=== PATIENT | male | born 1935 | race Two or more races ===

== ENCOUNTER 2020-05-01 12:54 | Inpatient (IN) | payer MEDICARE, BC ==
[~2020-05-01] VITALS: Ht 190.5 cm; Wt 82.6 kg
[2020-05-01 16:40] VITALS: BP 135/71
[2020-05-01] MEDS ORDERED: INSU100V11 (16:53)
[2020-05-01] MEDS ORDERED: ASPI-866 PO (16:53)
[2020-05-01] MEDS ORDERED: EMPA10TA PO (16:53)
[2020-05-01] MEDS ORDERED: INSU3INS10 SQ (16:53)
[2020-05-01] MEDS ORDERED: ATOR40TA PO (16:53)
[2020-05-01] MEDS ORDERED: DEXTROSE 50% 50 ML DISP.SYRIN IV PRN ×2 (17:00→19:45)
--- NOTE | 2020-05-01 17:49 | NUR ---
Received patient around 4pm in stable condition with oxygen via nasal cannula at 2LPM saturation- 96%. not in distress. Patient skin intact. ordered Z-guard for skin care. 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 Patient noted with left mild facial droop. Patient able to move upper arm and lower extremities. Patient left eye smaller than right eye noted. Patient verbalize blurred left eye vision. DNP Ben notified for med recon and admission. not in distress. will continue monitor
[2020-05-01] MEDS ORDERED: INSULIN REGULAR, HUMAN 300 UNIT/3 ML VIAL SQ PRN (19:45)
[2020-05-01 20:00] VITALS: BP 118/71
[2020-05-01] MEDS: ATORVASTATIN 40 MG TABLET PO SCH (20:25)
[2020-05-01] MEDS: BLOOD SUGAR DIAGNOSTIC 1 EACH STRIP VI SCH (20:26)
[2020-05-01] MEDS: INSULIN REGULAR, HUMAN 300 UNIT/3 ML VIAL SQ PRN (20:33)
[2020-05-01] MEDS ORDERED: BLOOD SUGAR DIAGNOSTIC 1 EACH STRIP VI SCH (21:00)
[2020-05-01] MEDS ORDERED: INSULIN ASPART 1000 UNITS/10 ML VIAL(NOVOLOG) SQ SCH (21:00)
--- NOTE | 2020-05-01 21:21 | NUR ---
Received pt resting in bed and watching tv. AAO x2-3. On 2L O2 via NC, no acute distress noted. Denies pain/ discomfort. Due med given as ordered. Accucheck 168, insulin coverage given as ordered. NIHSS done. Left facial drooping, left eye smaller than the right eye, and slurred speech noted. Pt noted to have some weakness, but able to move and lift both upper and lower extremities without difficulty. Safety measures maintained. Bed alarm on. Will continue to monitor.
[2020-05-02 04:00] VITALS: BP 113/67
[2020-05-02] MEDS: BLOOD SUGAR DIAGNOSTIC 1 EACH STRIP VI SCH ×4 (06:35→20:43)
[2020-05-02 07:14] LABS: BASOPHILS % (AUTO) 0.7 % (0.0-2.0); EOSINOPHILS # (AUTO) 0.1 K/uL (0.0-0.7); EOSINOPHILS % (AUTO) 1.9 % (0.0-7.0); HEMATOCRIT 46.9 % (36.7-47.1); HEMOGLOBIN 15.7 g/dL (12.5-16.3); LYMPHOCYTES # (AUTO) 1.7 K/uL (20.0-40.0); LYMPHOCYTES % (AUTO) 25.5 % (20.5-51.5); MEAN CORPUSCULAR HEMOGLOBIN 30.9 uug (23.8-33.4); MEAN CORPUSCULAR HGB CONC 34 g/dL (32.5-36.3); MEAN CORPUSCULAR VOLUME 92.1 fL (73.0-96.2); MONOCYTES # (AUTO) 0.9 K/uL (2.0-10.0); MONOCYTES % (AUTO) 13.9 % (0.0-11.0); NEUTROPHILS # (AUTO) 3.9 K/uL (1.8-8.9); PLATELET COUNT (AUTO) 161 K/uL (152-348); WHITE BLOOD COUNT (AUTO) 6.8 K/uL (3.6-10.2)
[2020-05-02 07:30] VITALS: BP 143/77
[2020-05-02 07:39] LABS: CREATININE 1.1 mg/dL (0.6-1.3); POTASSIUM 3.3 mmol/L (3.5-5.1)
[2020-05-02] MEDS ORDERED: POTASSIUM CHLORIDE 20 MEQ TAB.PRT.SR PO ONE (10:30)
[2020-05-02] MEDS: INSULIN REGULAR, HUMAN 300 UNIT/3 ML VIAL SQ PRN ×3 (12:16→20:44)
[2020-05-02] MEDS: ASPIRIN EC 81 MG TABLET.DR PO SCH (13:21)
--- NOTE | 2020-05-02 14:06 | NUR ---
Social Work Stroke Resources: aquacultural worker supervisor met with patient and provided stroke referrals such as: Stroke Family Warmline at (2-431-2-STROKE) and additional information on caring for a stroke survivor ( ). aquacultural worker supervisor also educated patient on the signs of Stroke and to immediately call 911. aquacultural worker supervisor provided education on the signs of stroke and provided educational packet with information: Dietary food, what stroke is, risks, emotional support, finding support, medical management, and effects of stroke.
--- NOTE | 2020-05-02 14:07 | NUR ---
[facility] PHQ9 Post Stroke Depression Screening: social worker psychiatric met with patient and conducted a PHQ-9 (Post Stroke Depression Screening) in which the patient scored a level of 4 for depression. Patient does not require a psychiatric consult at this time.
[2020-05-02 15:00] VITALS: BP 132/77
[2020-05-02 20:00] VITALS: BP 113/52
[2020-05-02] MEDS: ATORVASTATIN 40 MG TABLET PO SCH (20:42)
[2020-05-02] MEDS ORDERED: INSULIN DEGLUDEC SQ SCH (21:00)
[2020-05-02] MEDS ORDERED: LIRAGLUTIDE SQ SCH (21:00)
[2020-05-03] VITALS: BP 149/74
[2020-05-03 04:00] VITALS: BP 134/72
--- NOTE | 2020-05-03 04:46 | NUR ---
Received patient in bed, AAO x4. No acute distress or SOB was noted. On 2 L O2 via NC. Left facial droop and slurred speech was noted. Able to make needs known. No Complain of pain. All due medications administered and well tolerated. Accucheck @ 2100 done, BS:159, covered by 2 units insulin based on insulin sliding scale. Safety measures maintained. Fall prevention maintained. All needs attended promptly. Bed in locked and low position, Side rails up x2 for safety. Call light and frequently using items within reach. Continue to monitor and will endorse to the oncoming nurse.
[2020-05-03] MEDS: BLOOD SUGAR DIAGNOSTIC 1 EACH STRIP VI SCH ×4 (06:43→20:47)
[2020-05-03 07:30] VITALS: BP 115/67
[2020-05-03] MEDS ORDERED: JARDIANCE 10 MG TAB PO SCH (09:00)
[2020-05-03] MEDS: INSULIN REGULAR, HUMAN 300 UNIT/3 ML VIAL SQ PRN ×2 (11:53→20:50)
[2020-05-03] MEDS: ASPIRIN EC 81 MG TABLET.DR PO SCH (12:20)
[2020-05-03 15:40] VITALS: BP 146/64
--- NOTE | 2020-05-03 15:55 | NUR ---
INTERDISCIPLINARY TEAM CONFERENCE
[2020-05-03 20:00] VITALS: BP 136/68
[2020-05-03] MEDS: ATORVASTATIN 40 MG TABLET PO SCH (20:38)
[2020-05-04 04:55] VITALS: BP 136/69
--- NOTE | 2020-05-04 05:53 | NUR ---
Shift End Report: Slept well. No significant event reported all night, All needs attended and met. Continue current rehab plan of care.
[2020-05-04] MEDS: BLOOD SUGAR DIAGNOSTIC 1 EACH STRIP VI SCH ×4 (06:23→20:23)
[2020-05-04 08:00] VITALS: BP 157/76
[2020-05-04] MEDS: INSULIN REGULAR, HUMAN 300 UNIT/3 ML VIAL SQ PRN ×4 (08:32→20:24)
[2020-05-04] MEDS: ASPIRIN EC 81 MG TABLET.DR PO SCH (08:55)
[2020-05-04] MEDS: predniSONE 20 MG TABLET PO SCH (11:36)
[2020-05-04] MEDS: VALACYCLOVIR HCL 500 MG TABLET PO SCH ×2 (13:48→21:11)
[2020-05-04 16:01] VITALS: BP 145/73
--- NOTE | 2020-05-04 16:03 | NUR ---
INDIVIDUALIZED PLAN OF CARE
--- NOTE | 2020-05-04 18:39 | NUR ---
no changes noted during shift, kept patient comfortable and clean.
[2020-05-04 20:22] VITALS: BP 135/86
[2020-05-04] MEDS: ATORVASTATIN 40 MG TABLET PO SCH (20:31)
[2020-05-05 04:37] VITALS: BP 137/70
[2020-05-05] MEDS: VALACYCLOVIR HCL 500 MG TABLET PO SCH ×3 (06:01→21:06)
[2020-05-05] MEDS: BLOOD SUGAR DIAGNOSTIC 1 EACH STRIP VI SCH ×4 (06:47→20:40)
[2020-05-05] MEDS: INSULIN REGULAR, HUMAN 300 UNIT/3 ML VIAL SQ PRN ×4 (07:32→20:45)
[2020-05-05] MEDS: ASPIRIN EC 81 MG TABLET.DR PO SCH (07:53)
[2020-05-05] MEDS: predniSONE 20 MG TABLET PO SCH (07:53)
[2020-05-05 08:00] VITALS: BP 167/84
[2020-05-05 15:52] VITALS: BP 125/65
[2020-05-05 20:01] VITALS: BP 126/72
[2020-05-05] MEDS: ATORVASTATIN 40 MG TABLET PO SCH (20:40)
--- NOTE | 2020-05-05 21:26 | NUR ---
Received pt resting in bed and watching tv. AAO x3-4, forgetful at times. On 1L O2 via NC, no acute distress noted. Denies pain/ discomfort. Due meds given as ordered, given crushed, tolerated well. Accucheck 245, insulin coverage given per sliding scale. Safety measures maintained. Call light and personal items within reach. Will continue to monitor.
[2020-05-06 04:47] VITALS: BP 154/76
[2020-05-06] MEDS: VALACYCLOVIR HCL 500 MG TABLET PO SCH ×3 (05:48→22:51)
[2020-05-06] MEDS: BLOOD SUGAR DIAGNOSTIC 1 EACH STRIP VI SCH ×4 (06:31→21:06)
[2020-05-06 07:30] VITALS: BP 148/74
[2020-05-06] MEDS: INSULIN REGULAR, HUMAN 300 UNIT/3 ML VIAL SQ PRN ×4 (07:42→21:11)
[2020-05-06] MEDS: ASPIRIN EC 81 MG TABLET.DR PO SCH (08:01)
[2020-05-06] MEDS: predniSONE 20 MG TABLET PO SCH (08:01)
[2020-05-06 16:00] VITALS: BP 142/66
[2020-05-06 20:00] VITALS: BP 148/73
--- NOTE | 2020-05-06 21:00 | NUR ---
Received patient in bed, AAO x3-4. No acute distress or SOB was noted. On RA saturating @95%2. Left facial droop and slurred speech noted. Denies ny pain or discomfort at this time. All due medications administered and well tolerated, crushed and given with apple sauce. Accucheck BS:224, covered by 4 units insulin based on insulin sliding scale. Able to make needs known. all needs attended to promptly, kept comfortable. Safety measures maintained. Fall prevention maintained. All needs attended promptly. Bed in locked and low position, Side rails up x2 for safety. Call light and frequently using items within reach. Continue to monitor.
[2020-05-06] MEDS: ATORVASTATIN 40 MG TABLET PO SCH (21:05)
--- NOTE | 2020-05-06 22:00 | NUR ---
Patient face timed before bed.
[2020-05-07 04:00] VITALS: BP 147/97
[2020-05-07] MEDS: VALACYCLOVIR HCL 500 MG TABLET PO SCH ×3 (06:34→21:14)
[2020-05-07] MEDS: BLOOD SUGAR DIAGNOSTIC 1 EACH STRIP VI SCH ×4 (06:45→21:14)
--- NOTE | 2020-05-07 06:48 | NUR ---
patient slept well through the nights. no complaints, denies any discomfort. No changes throughout the shift. All needs attended and met. Continue current rehab plan of care. Kept patient comfortable and clean. Will endorse report to oncoming nurse accordingly.
[2020-05-07 08:02] VITALS: BP 127/73
[2020-05-07] MEDS: INSULIN REGULAR, HUMAN 300 UNIT/3 ML VIAL SQ PRN ×4 (08:03→21:16)
[2020-05-07] MEDS: ASPIRIN EC 81 MG TABLET.DR PO SCH (08:22)
[2020-05-07] MEDS: predniSONE 20 MG TABLET PO SCH (08:22)
--- NOTE | 2020-05-07 10:00 | NUR ---
Received patient in room, Patient is AAO x 3-4. No acute distress noted. Vital signs stable for patient. No complains of pain at this time. Due morning medications administered as ordered crushed with apple sauce as scheduled, tolerated well. Patient still noted with left side of the face drooping and with slurred speech but able to express needs. Patient on Accu checks. On PT/OT therapy. Safety measures in place. Needs attended, call light left at bed side and will continue with care.
[2020-05-07 15:49] VITALS: BP 127/67
--- NOTE | 2020-05-07 18:13 | NUR ---
All evening medications administered, patient with Accu check of 302 covered with 8units of insulin per sliding scale. Safety measures in place, VS stable. NO complains of discomfort or pain. Needs attended and will continue with care.
[2020-05-07] MEDS: ATORVASTATIN 40 MG TABLET PO SCH (21:14)
[2020-05-07 21:26] VITALS: BP 144/62
--- NOTE | 2020-05-07 22:00 | NUR ---
Received patient in bed, AAO x3-4. No acute distress or SOB was noted. On RA saturating @90%put pt on 2L NC saturating @95%. Left facial droop and slurred speech noted. Denies any pain or discomfort at this time. All due medications administered and well tolerated, crushed and given with apple sauce. Accucheck BS:220, covered by 4 units insulin based on insulin sliding scale. Able to make needs known. Safety measures maintained. Fall prevention maintained. All needs attended promptly. Bed in locked and low position, Side rails up x2 for safety. Call light and frequently using items within reach. Continue to monitor.
[2020-05-08 04:50] VITALS: BP 158/93
[2020-05-08] MEDS: VALACYCLOVIR HCL 500 MG TABLET PO SCH ×3 (05:55→21:07)
[2020-05-08] MEDS: BLOOD SUGAR DIAGNOSTIC 1 EACH STRIP VI SCH ×4 (06:17→20:50)
--- NOTE | 2020-05-08 06:26 | NUR ---
patient slept well through the nights. no complaints, denies any discomfort. No changes throughout the shift. Pt is a little forgetful needs reorientation. On 2L NC saturating @99%. Blood sugar 185 this morning. All needs attended and met. Continue current rehab plan of care. Kept patient comfortable and clean. Will endorse report to oncoming nurse accordingly.
[2020-05-08 06:57] VITALS: BP 139/84
[2020-05-08] MEDS ORDERED: INSU3INS6 SQ (07:51)
[2020-05-08] MEDS ORDERED: LINA5TAB PO (07:51)
[2020-05-08 08:00] VITALS: BP 123/63
[2020-05-08] MEDS: INSULIN REGULAR, HUMAN 300 UNIT/3 ML VIAL SQ PRN ×4 (08:11→20:53)
[2020-05-08] MEDS: predniSONE 20 MG TABLET PO SCH (08:25)
[2020-05-08] MEDS: LOSARTAN POTASSIUM 25 MG TABLET PO SCH (08:26)
[2020-05-08] MEDS: ASPIRIN EC 81 MG TABLET.DR PO SCH (08:26)
[2020-05-08] MEDS ORDERED: LOSARTAN POTASSIUM 25 MG TABLET PO SCH (09:00)
--- NOTE | 2020-05-08 10:20 | NUR ---
Patient is AAO x 3-4. No acute distress noted. ON O2 NC at 1LPM. patient is able to express self still with slurred speech noted. Vital signs stable. Patient noted with elevated BS; informed MD, medications reviewed and started on scheduled Lantus. Patient also started one Losartan 25mg po daily. All due morning meds administered and tolerated. patient on continuos PT/OT therapy as scheduled. Patient is BRP and one person assist for care. Safety measures in place. Needs attended and will continue with care.
[2020-05-08] MEDS: INSULIN GLARGINE,HUM 300 UNITS/3 ML CARTRIDGE SQ SCH (14:01)
[2020-05-08 15:47] VITALS: BP 135/66
--- NOTE | 2020-05-08 18:38 | NUR ---
Patient in stable condition, NO acute distress noted. Accu checks done and insulin per sliding scale administered. VS stable for patient. No complains of pain throughout shift. Monitored closely for safety. Needs attended, safety measures in place and will continue with care.
[2020-05-08 20:05] VITALS: BP 123/61
[2020-05-08] MEDS: ATORVASTATIN 40 MG TABLET PO SCH (20:50)
--- NOTE | 2020-05-08 21:45 | NUR ---
RECEIVED PATIENT IN BED, ALERT AND VERBALLY RESPONSIVE. NO COMPLAINTS OF PAIN. RECEIVED ALL DUE MEDICATIONS. TOLERATED WELL. FALL, SAFETY, AND ASPIRATION PRECAUTIONS OBSERVED. WILL CONTINUE TO MONITOR PATIENT.
[2020-05-09 04:46] VITALS: BP 140/79
[2020-05-09] MEDS: VALACYCLOVIR HCL 500 MG TABLET PO SCH ×3 (05:48→21:00)
--- NOTE | 2020-05-09 06:22 | NUR ---
NO CHANGES OCCURRED DURING THE NIGHT. ALL NEEDS ATTENDED. FALL, SAFETY, AND ASPIRATION PRECAUTIONS OBSERVED.
[2020-05-09] MEDS: BLOOD SUGAR DIAGNOSTIC 1 EACH STRIP VI SCH ×4 (06:35→20:58)
[2020-05-09] MEDS ORDERED: DOCUSATE SODIUM 100 MG CAPSULE PO PRN (07:15)
--- NOTE | 2020-05-09 07:50 | NUR ---
Received patient in bed awake, alert oriented x3 with slurred speech, not in any form of distress on oxygen at 1LPM via nasal cannula. He denies any pain or discomfort at this time. Noted facial asymmetry with droop on left eye and left side of lip. Call light and frequently used items placed within patient's reach.
[2020-05-09 08:00] VITALS: BP 137/80
[2020-05-09] MEDS: predniSONE 20 MG TABLET PO SCH (08:53)
[2020-05-09] MEDS: LINAGLIPTIN 5 MG TABLET PO SCH (08:53)
[2020-05-09] MEDS: ASPIRIN EC 81 MG TABLET.DR PO SCH (08:53)
[2020-05-09] MEDS: LOSARTAN POTASSIUM 25 MG TABLET PO SCH (08:53)
[2020-05-09] MEDS: INSULIN GLARGINE,HUM 300 UNITS/3 ML CARTRIDGE SQ SCH (08:57)
[2020-05-09] MEDS: INSULIN REGULAR, HUMAN 300 UNIT/3 ML VIAL SQ PRN ×4 (08:57→21:00)
[2020-05-09 15:12] VITALS: BP 108/46
[2020-05-09] MEDS: DOCUSATE SODIUM 100 MG/10 ML LIQUID UDC PO PRN (16:20)
--- NOTE | 2020-05-09 16:55 | NUR ---
Patient remains alert, oriented x 3-4, not in any form of distress, on room air tolerating well. No complain of any pain or discomfort. Patient is compliant with medications and tolerated well. Needs attended to promptly and met. Patient participated with PT, OT and ST and tolerated well. Safety measures maintained. Call light and frequently used items placed within patient's reach. Will continue to monitor.
[2020-05-09] MEDS: POLYVINYL ALCOHOL OPHT DROPS 15 ML BOTTLE LEFTEYE PRN (20:57)
[2020-05-09] MEDS: ATORVASTATIN 40 MG TABLET PO SCH (20:58)
[2020-05-09 21:00] VITALS: BP 108/71
--- NOTE | 2020-05-09 22:25 | NUR ---
Received pt resting in bed. AAO x3-4. On 1L O2 via NC, no acute distress noted. Pt was on room air but desat to 88%. Due meds given as ordered, crushed with apple sauce, tolerated well. Eye drop also given on left eye. Safety measures maintained. Call light and personal items within reach. Will continue to monitor.
[2020-05-10 05:32] VITALS: BP 130/64
[2020-05-10] MEDS: VALACYCLOVIR HCL 500 MG TABLET PO SCH ×3 (06:03→21:05)
[2020-05-10] MEDS: DOCUSATE SODIUM 100 MG/10 ML LIQUID UDC PO PRN ×2 (06:04→15:22)
[2020-05-10] MEDS: BLOOD SUGAR DIAGNOSTIC 1 EACH STRIP VI SCH ×4 (06:45→21:01)
[2020-05-10 07:30] VITALS: BP 92/55
[2020-05-10] MEDS: predniSONE 20 MG TABLET PO SCH (08:16)
[2020-05-10] MEDS: POLYVINYL ALCOHOL OPHT DROPS 15 ML BOTTLE LEFTEYE PRN ×2 (08:17→21:12)
[2020-05-10] MEDS: LINAGLIPTIN 5 MG TABLET PO SCH (08:17)
[2020-05-10] MEDS: LOSARTAN POTASSIUM 25 MG TABLET PO SCH (08:23)
[2020-05-10] MEDS: INSULIN GLARGINE,HUM 300 UNITS/3 ML CARTRIDGE SQ SCH (08:29)
[2020-05-10] MEDS: ASPIRIN 81 MG TAB.CHEW PO SCH (08:33)
[2020-05-10] MEDS: INSULIN REGULAR, HUMAN 300 UNIT/3 ML VIAL SQ PRN ×3 (12:12→21:10)
--- NOTE | 2020-05-10 13:14 | NUR ---
INTERDISCIPLINARY TEAM CONFERENCE
[2020-05-10 15:46] VITALS: BP 141/69
[2020-05-10 21:03] VITALS: BP 140/75
[2020-05-10] MEDS: ATORVASTATIN 40 MG TABLET PO SCH (21:04)
--- NOTE | 2020-05-10 21:40 | NUR ---
Received pt resting in bed. AAO x3-4. On 1L O2 via NC, no acute distress noted. Due meds given as ordered, crushed with apple sauce, tolerated well. On nectar- thickened liquid. Eye drop also given on left eye. Safety measures maintained. Call light and personal items within reach. Will continue to monitor.
[2020-05-11 05:05] VITALS: BP 140/71
[2020-05-11] MEDS: DOCUSATE SODIUM 100 MG/10 ML LIQUID UDC PO PRN ×2 (05:53→20:50)
[2020-05-11] MEDS: VALACYCLOVIR HCL 500 MG TABLET PO SCH (06:13)
[2020-05-11] MEDS: POLYVINYL ALCOHOL OPHT DROPS 15 ML BOTTLE LEFTEYE PRN (06:13)
--- NOTE | 2020-05-11 06:39 | NUR ---
Blood sugar dropped to 66 this morning. Pt did not present any s/s of hypoglycemia. 1 cup of orange juice given. Rechecked after 20 mins. Blood sugar is now 88. Will endorse accordingly.
[2020-05-11] MEDS: BLOOD SUGAR DIAGNOSTIC 1 EACH STRIP VI SCH ×4 (06:42→20:45)
[2020-05-11 06:45] LABS: BASOPHILS % (AUTO) 0.2 % (0.0-2.0); EOSINOPHILS # (AUTO) 0.1 K/uL (0.0-0.7); EOSINOPHILS % (AUTO) 0.5 % (0.0-7.0); HEMATOCRIT 47.5 % (36.7-47.1); HEMOGLOBIN 15.7 g/dL (12.5-16.3); LYMPHOCYTES # (AUTO) 2.4 K/uL (20.0-40.0); LYMPHOCYTES % (AUTO) 20.6 % (20.5-51.5); MEAN CORPUSCULAR HEMOGLOBIN 30.7 uug (23.8-33.4); MEAN CORPUSCULAR HGB CONC 33 g/dL (32.5-36.3); MEAN CORPUSCULAR VOLUME 93.1 fL (73.0-96.2); MONOCYTES # (AUTO) 1.1 K/uL (2.0-10.0); MONOCYTES % (AUTO) 9.2 % (0.0-11.0); NEUTROPHILS % (AUTO) 69.5 % (38.5-71.5); PLATELET COUNT (AUTO) 164 K/uL (152-348); WHITE BLOOD COUNT (AUTO) 11.5 K/uL (3.6-10.2)
[2020-05-11 06:57] LABS: POTASSIUM 3.5 mmol/L (3.5-5.1)
[2020-05-11 08:00] VITALS: BP 145/67
[2020-05-11] MEDS: predniSONE 20 MG TABLET PO SCH (08:41)
[2020-05-11] MEDS: LINAGLIPTIN 5 MG TABLET PO SCH (08:51)
[2020-05-11] MEDS: LOSARTAN POTASSIUM 25 MG TABLET PO SCH (08:51)
[2020-05-11] MEDS: ASPIRIN 81 MG TAB.CHEW PO SCH (08:51)
[2020-05-11] MEDS: INSULIN GLARGINE,HUM 300 UNITS/3 ML CARTRIDGE SQ SCH (10:31)
[2020-05-11] MEDS: INSULIN REGULAR, HUMAN 300 UNIT/3 ML VIAL SQ PRN ×3 (12:03→20:46)
[2020-05-11 15:10] VITALS: BP 111/59
[2020-05-11] MEDS: MAGNESIUM HYDROXIDE 30 ML LIQUID UDC PO PRN (18:40)
--- NOTE | 2020-05-11 18:41 | NUR ---
Received patient in room, Patient is AAO x 3-4. No acute distress noted. ON O2 NC at 1LPMPRN. All due morning meds administered and tolerated. Patient changed to nectar thick liquids. Patient on continuos PT/OT therapy as scheduled. Skin kept clean and dry. Safety measures in place. Needs attended and will continue with care.
[2020-05-11 20:00] VITALS: BP 127/54
[2020-05-11] MEDS: ATORVASTATIN 40 MG TABLET PO SCH (20:45)
--- NOTE | 2020-05-11 21:59 | NUR ---
RECD PT IN BED, ALERT ,ORIENTED, NO COMPLAINTS OF PAIN PRESENTED, VITAL SIGNS TAKEN AND RECORDED.LET FACIAL DROOP STILL EVIDENT.ABLE TO USE WALKER TO GO TO BR. DUE MEDS GIVEN,NO SGNS AND SYMPTOMS OF DIABETIC CRISES.KEPT WARM AND COMFORTABLE.
--- NOTE | 2020-05-12 02:11 | NUR ---
APPEARS SLEEPING SOUNDLY IN BED. NO ACUTE DISTRESS NOTED.
[2020-05-12 04:00] VITALS: BP 109/61
[2020-05-12 05:32] VITALS: BP 109/61
[2020-05-12] MEDS: BLOOD SUGAR DIAGNOSTIC 1 EACH STRIP VI SCH ×4 (06:35→20:32)
--- NOTE | 2020-05-12 06:35 | NUR ---
bs done 69, asymptomatic of any diabetic crises,orange juice given, will monitor pt.
[2020-05-12 08:00] VITALS: BP 109/54
[2020-05-12] MEDS: LINAGLIPTIN 5 MG TABLET PO SCH (08:53)
[2020-05-12] MEDS: ASPIRIN 81 MG TAB.CHEW PO SCH (08:53)
[2020-05-12] MEDS: predniSONE 20 MG TABLET PO SCH (08:53)
[2020-05-12] MEDS: LOSARTAN POTASSIUM 25 MG TABLET PO SCH (08:54)
[2020-05-12] MEDS: INSULIN GLARGINE,HUM 300 UNITS/3 ML CARTRIDGE SQ SCH (09:00)
[2020-05-12 11:07] VITALS: BP 118/60
[2020-05-12] MEDS: INSULIN REGULAR, HUMAN 300 UNIT/3 ML VIAL SQ PRN ×3 (11:20→20:36)
[2020-05-12 16:06] VITALS: BP 95/59
--- NOTE | 2020-05-12 18:35 | NUR ---
NO CHANGES NOTED DURING SHIFT, NO ACUTE DISTRESS NOTED
[2020-05-12 20:03] VITALS: BP 120/59
[2020-05-12] MEDS: ATORVASTATIN 40 MG TABLET PO SCH (20:38)
[2020-05-13 05:44] VITALS: BP 118/54
[2020-05-13] MEDS: BLOOD SUGAR DIAGNOSTIC 1 EACH STRIP VI SCH ×4 (06:23→20:16)
[2020-05-13 06:45] LABS: BASOPHILS % (AUTO) 0.2 % (0.0-2.0); EOSINOPHILS % (AUTO) 0.3 % (0.0-7.0); HEMATOCRIT 46.3 % (36.7-47.1); HEMOGLOBIN 15.4 g/dL (12.5-16.3); LYMPHOCYTES # (AUTO) 1.9 K/uL (20.0-40.0); LYMPHOCYTES % (AUTO) 15.8 % (20.5-51.5); MEAN CORPUSCULAR HEMOGLOBIN 30.8 uug (23.8-33.4); MEAN CORPUSCULAR HGB CONC 33 g/dL (32.5-36.3); MEAN CORPUSCULAR VOLUME 92.7 fL (73.0-96.2); MONOCYTES # (AUTO) 1.2 K/uL (2.0-10.0); MONOCYTES % (AUTO) 10.4 % (0.0-11.0); NEUTROPHILS # (AUTO) 8.6 K/uL (1.8-8.9); NEUTROPHILS % (AUTO) 73.3 % (38.5-71.5); PLATELET COUNT (AUTO) 157 K/uL (152-348); WHITE BLOOD COUNT (AUTO) 11.8 K/uL (3.6-10.2)
[2020-05-13 08:00] VITALS: BP 111/78
[2020-05-13] MEDS: predniSONE 20 MG TABLET PO SCH (08:11)
[2020-05-13] MEDS: ASPIRIN 81 MG TAB.CHEW PO SCH (08:11)
[2020-05-13] MEDS: LINAGLIPTIN 5 MG TABLET PO SCH (08:11)
[2020-05-13] MEDS: POLYVINYL ALCOHOL OPHT DROPS 15 ML BOTTLE LEFTEYE PRN ×2 (08:16→20:23)
[2020-05-13] MEDS: LOSARTAN POTASSIUM 25 MG TABLET PO SCH (08:16)
[2020-05-13] MEDS: INSULIN GLARGINE,HUM 300 UNITS/3 ML CARTRIDGE SQ SCH (08:17)
[2020-05-13] MEDS: INSULIN REGULAR, HUMAN 300 UNIT/3 ML VIAL SQ PRN ×3 (11:59→20:23)
[2020-05-13 16:00] VITALS: BP 142/79
--- NOTE | 2020-05-13 17:48 | NUR ---
Patient remains alert, oriented x3-4, not in any form of distress, on room air. He denies any pain or discomfort. Patient participated with PT/OT and ST and tolerated well. He is compliant with medications. Needs attended to promptly. Call light and frequently used items placed within patient's reach.
[2020-05-13 20:00] VITALS: BP 132/67
[2020-05-13] MEDS: ATORVASTATIN 40 MG TABLET PO SCH (20:16)
--- NOTE | 2020-05-13 20:51 | NUR ---
Received pt resting in bed. AAO x3. No acute distress noted. Denies pain/ discomfort. Due med given as ordered, given crushed with apple sauce, tolerated well. On nectar- thick liquid. Accucheck 194, insulin coverage given as per sliding scale. Safety measures maintained. Call light and personal items within reach. Will continue to monitor.
[2020-05-14 04:00] VITALS: BP 119/63
--- NOTE | 2020-05-14 06:18 | NUR ---
Pt's blood sugar this morning is 58 despite having snacks last night. Cup of orange juice given. Will recheck again.
[2020-05-14] MEDS: BLOOD SUGAR DIAGNOSTIC 1 EACH STRIP VI SCH ×4 (06:41→20:26)
--- NOTE | 2020-05-14 06:41 | NUR ---
Pt's blood sugar went up to 75. No s/s of hypoglycemia. Continue to monitor. Will endorse accordingly.
[2020-05-14 07:30] VITALS: BP 128/64
[2020-05-14] MEDS: predniSONE 20 MG TABLET PO SCH (08:40)
[2020-05-14] MEDS: ASPIRIN 81 MG TAB.CHEW PO SCH (08:41)
[2020-05-14] MEDS: LINAGLIPTIN 5 MG TABLET PO SCH (08:41)
[2020-05-14] MEDS: LOSARTAN POTASSIUM 25 MG TABLET PO SCH (08:41)
[2020-05-14] MEDS: INSULIN GLARGINE,HUM 300 UNITS/3 ML CARTRIDGE SQ SCH (09:00)
--- NOTE | 2020-05-14 10:03 | NUR ---
Informed Dr. Jeffers regarding episode of hypoglycemia this morning and asymptomatic as endorsed by manufacturing shift supervisor nurse. Repeat BS check done 105. ordered to hold dose of Lantus due this morning. Will continue to monitor.
[2020-05-14] MEDS: INSULIN REGULAR, HUMAN 300 UNIT/3 ML VIAL SQ PRN ×3 (11:54→20:28)
[2020-05-14 17:00] VITALS: BP 66/18
[2020-05-14 17:05] VITALS: BP 110/67
--- NOTE | 2020-05-14 17:34 | NUR ---
Patient noted with BP of 66/18, HR 54, patient states he feels weak; elevated legs and rechecked BP 110/67, HR 62, patient stated feeling better after intervention. Patient remains alert and oriented x 3-4. No complaint of any discomfort at this time. Notified Dr Jeffers and ordered to continue monitor BP
--- NOTE | 2020-05-14 19:30 | NUR ---
Awake during initial rounds, watching TV. No s/s of respiratory distress. HOB elevated. Denies any pain/discomforts at this time. Safety measures and fall prevention maintained. Continue care as planned.
[2020-05-14 20:00] VITALS: BP 115/75
[2020-05-14] MEDS: ATORVASTATIN 40 MG TABLET PO SCH (20:22)
[2020-05-15 04:00] VITALS: BP 118/62
[2020-05-15] MEDS: BLOOD SUGAR DIAGNOSTIC 1 EACH STRIP VI SCH ×4 (06:15→20:11)
--- NOTE | 2020-05-15 06:16 | NUR ---
Shift End Report: VS stable. No s/s of hypo/hyperglycemia. No seizure activity reported. No complaint of pain/discomforts presented. All needs attended and met. No significant event reported. Continue current rehab plan of care.
[2020-05-15 08:00] VITALS: BP 125/57
[2020-05-15] MEDS: LINAGLIPTIN 5 MG TABLET PO SCH (08:07)
[2020-05-15] MEDS: ASPIRIN 81 MG TAB.CHEW PO SCH (08:07)
[2020-05-15] MEDS: predniSONE 20 MG TABLET PO SCH (08:07)
[2020-05-15] MEDS: LOSARTAN POTASSIUM 25 MG TABLET PO SCH (08:08)
[2020-05-15] MEDS: INSULIN GLARGINE,HUM 300 UNITS/3 ML CARTRIDGE SQ SCH (08:12)
[2020-05-15] MEDS: INSULIN REGULAR, HUMAN 300 UNIT/3 ML VIAL SQ PRN ×3 (11:34→20:12)
--- NOTE | 2020-05-15 13:50 | NUR ---
patient is alert, awake, oriented x3, no acute distress noted, ambulates with FWW with PT, participates in OT services, tolerates well, teaching provided about signs and symptoms of hypo/hyperglycemia and management of it, patient verbalized somewhat understanding of it, reinforcement required, however no signs and symptoms of hypoglycemia or hyperglycemia noted, still noted with facial droop. thinkened liquids, no sign and symptoms of aspiration noted, such as no cough while eating or drinking. continue to with same plan of care, no new skin issues noted, independent with position change while in bed.
[2020-05-15 15:55] VITALS: BP 152/66
[2020-05-15] MEDS: MAGNESIUM HYDROXIDE 30 ML LIQUID UDC PO PRN (16:34)
--- NOTE | 2020-05-15 19:30 | NUR ---
Awake during initial rounds, watching TV. No s/s of respiratory distress. HOB elevated. Vitals WNL. Denies any pain/discomforts at this time. Safety measures and fall prevention maintained. Continue care as planned.
[2020-05-15] MEDS: ATORVASTATIN 40 MG TABLET PO SCH (20:07)
[2020-05-15 20:25] VITALS: BP 115/62
--- NOTE | 2020-05-15 22:00 | NUR ---
Left facial droop and slurred speech noted. Denies any pain or discomfort at this time. All due medications administered and well tolerated, crushed and given with apple sauce. Accucheck BS:205, covered by 4 units insulin based on insulin sliding scale. Able to make needs known. Safety measures maintained. Fall prevention maintained. All needs attended promptly. Bed in locked and low position, Side rails up x2 for safety. Call light and frequently using items within reach. Continue to monitor.
[2020-05-16 05:01] VITALS: BP 173/93
[2020-05-16 05:30] VITALS: BP 163/82
[2020-05-16] MEDS: LOSARTAN POTASSIUM 25 MG TABLET PO SCH ×2 (05:45→09:00)
--- NOTE | 2020-05-16 05:48 | NUR ---
no s/s of distress. denies any pain at the time. Blood pressure 163/82 administered non-scheduled losartan. Will continue to monitor.
[2020-05-16] MEDS: DOCUSATE SODIUM 100 MG/10 ML LIQUID UDC PO PRN (06:08)
[2020-05-16] MEDS: BLOOD SUGAR DIAGNOSTIC 1 EACH STRIP VI SCH ×2 (06:31→11:48)
[2020-05-16 06:33] VITALS: BP 151/68
[2020-05-16 06:40] LABS: BASOPHILS % (AUTO) 0.2 % (0.0-2.0); EOSINOPHILS % (AUTO) 0.3 % (0.0-7.0); HEMATOCRIT 50.7 % (36.7-47.1); HEMOGLOBIN 17.1 g/dL (12.5-16.3); LYMPHOCYTES # (AUTO) 2.1 K/uL (20.0-40.0); LYMPHOCYTES % (AUTO) 15.6 % (20.5-51.5); MEAN CORPUSCULAR HEMOGLOBIN 31.1 uug (23.8-33.4); MEAN CORPUSCULAR HGB CONC 34 g/dL (32.5-36.3); MONOCYTES # (AUTO) 1.3 K/uL (2.0-10.0); MONOCYTES % (AUTO) 9.5 % (0.0-11.0); NEUTROPHILS # (AUTO) 9.9 K/uL (1.8-8.9); NEUTROPHILS % (AUTO) 74.4 % (38.5-71.5); PLATELET COUNT (AUTO) 155 K/uL (152-348); RED BLOOD CELL COUNT(AUTO) 5.51 MIL/uL (4.06-5.63); WHITE BLOOD COUNT (AUTO) 13.3 K/uL (3.6-10.2)
[2020-05-16 06:59] LABS: BILIRUBIN,TOTAL 0.8 mg/dL (0.2-1.0); CREATININE 1.2 mg/dL (0.6-1.3); MAGNESIUM 2.4 mg/dL (1.8-2.4); PHOSPHOROUS 3.5 mg/dL (2.5-4.9); POTASSIUM 4.4 mmol/L (3.5-5.1); TOTAL PROTEIN, SERUM 5.7 g/dL (6.4-8.2)
[2020-05-16 07:01] LABS: THYROID STIMULATING HORMONE 1.825 mIU/mL (0.358-3.740)
[2020-05-16 07:31] VITALS: BP 124/67
[2020-05-16] MEDS: LINAGLIPTIN 5 MG TABLET PO SCH (09:41)
[2020-05-16] MEDS: ASPIRIN 81 MG TAB.CHEW PO SCH (09:41)
[2020-05-16] MEDS ORDERED: INSULIN GLARGINE,HUM 300 UNITS/3 ML CARTRIDGE SQ SCH (10:00)
--- NOTE | 2020-05-16 10:18 | NUR ---
Blood sugar checked before breakfast prior due Lantus and showed 79, patient remains alert, oriented x 3, not in any form of distress. He denies any pain or discomfort. Repeat blood sugar check done after breakfast 120. Dr. Jeffers in the unit, informed MD of trend of his blood sugar and MD ordered to decrease Lantus to 40 units subQ daily. Due medications administered except Losartan since it was administered early this morning by car shifter nurse and BP at this time is 104/51 HR 68. Safety measures maintained. Call light and frequently used items placed within patient's reach.
--- NOTE | 2020-05-16 14:00 | NUR ---
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 Explained risks and benefits but patient still refused.
[2020-05-16 14:26] VITALS: BP 111/51
--- NOTE | 2020-05-16 14:30 | NUR ---
Received an order from Dr. Monreal for discharge order to home with [facility] for PT, OT, ST and nursing services.
--- NOTE | 2020-05-16 16:09 | NUR ---
Discharge instructions provided to the patient with verbalized understanding. All belongings well accounted for and brought home with the patient. Discharge papers signed by and given to the patient. Patient remains alert, oriented x 3. No complain of any pain or discomfort. Patient participated and tolerated PT, OT and ST services for today. Assisted with his needs promptly. Vital signs : BP 116/66, HR 64, O2 sat 98% at room air. Faxed to [place] pharmacy the discharge prescription and medication list. Spoke to patient's Lidia on the phone, discharge instructions provided with verbalized understanding. Patient picked up by [facility] ambulance transferred via gurney at 3:50PM.
[2020-05-17] MEDS ORDERED: INSULIN GLARGINE,HUM 300 UNITS/3 ML CARTRIDGE SQ SCH (09:00)
== END 2020-05-16 15:30 | disposition home health service (06) | DRG 57 ==
PROVIDERS: ADMIT Physical Medicine & Rehabilitation Pain Medicine; ATTEND Physical Medicine & Rehabilitation Pain Medicine
DX: I69.392 Facial weakness following cerebral infarction (principal); I69.391 Dysphagia following cerebral infarction; I69.322 Dysarthria following cerebral infarction; R13.10 Dysphagia, unspecified; G51.0 Bell's palsy; E11.65 Type 2 diabetes mellitus with hyperglycemia; E78.5 Hyperlipidemia, unspecified; I70.0 Atherosclerosis of aorta; M50.30 Other cervical disc degeneration, unspecified cervical region; I65.23 Occlusion and stenosis of bilateral carotid arteries; M48.02 Spinal stenosis, cervical region; Z79.4 Long term (current) use of insulin; R79.89 Other specified abnormal findings of blood chemistry
CPT/HCPCS: 36415; 71045; 82652; 83735; 84100; 84443; 85025; A4663; J1815; J7030; J7512